=== PATIENT | female | born 1995 | race American Indian/Alaskan Native ===

== ENCOUNTER 2018-11-30 04:58 | Emergency (ER) | payer OTHER ==
[~2018-11-30 04:58] MED LIST: BACTRIM DS TAB1 EACH PO; KEFLEX500 MG PO; SULFAMETHOXAZO1 EAC1 PO; TYLENOL WITH C1 EACH PO
[2018-11-30] MEDS ORDERED: NORCO 5-325 TA1 EACH PO (07:08)
== END 2018-11-30 08:25 | disposition home or self-care (01) ==
LOC: ED 04:58
PROC: 0HQ0XZZ Repair Scalp Skin, External Approach (ICD-10-PCS; principal; 2018-11-30)
PROC: 0HQMXZZ Repair Right Foot Skin, External Approach (ICD-10-PCS; 2018-11-30)
PROC: 0HQLXZZ Repair Left Lower Leg Skin, External Approach (ICD-10-PCS; 2018-11-30)
DX: S01.01XA Laceration without foreign body of scalp, initial encounter (principal); S81.012A Laceration without foreign body, left knee, initial encounter; S91.011A Laceration without foreign body, right ankle, initial encounter; V87.8XXA Person injured in other specified noncollision transport accidents involving motor vehicle (traffic), initial encounter; Z79.899 Other long term (current) drug therapy
CPT/HCPCS: 12004; 70450; 71045; 71260; 72125; 74177; 80053; 81001; 82150; 82550; 83690; 85025; 86850; 86900; 86901; 96374; 96375; 99284-25; G0480; J0690; J2405; J3010; Q9967

== ENCOUNTER 2023-10-23 05:15 | Emergency (ER) | payer OTHER ==
[~2023-10-23] VITALS: Ht 167.6 cm; Wt 56.7 kg
[~2023-10-23 05:15] MED LIST changes: +NORCO 5-325 TA1 EACH PO
[2023-10-23 05:47] LABS: BASOPHILS 0.9 % (0-2); EOSINOPHILS 1.5 % (0-6); HEMATOCRIT 41.6 % (35.0-50.0); HEMOGLOBIN 13.8 g/dL (12.0-18.0); LYMPHOCYTES 38.9 % (24-44); MCH 27.5 (27-36); MCHC 33.1 g/dl (30-36); MCV 83.1 fl (81-99); MONOCYTES 6.9 % (0-12); NEUTROPHILS 51.8 % (39-80); PLATELET COUNT 335 K/uL (140-440); RBC 5.01 M/ul (4.3-5.7); RDW 15.3 (10.5-15.0)
[2023-10-23 06:05] LABS: ACETAMINOPHEN 0 ug/mL (10-30); ALBUMIN 4.2 g/dL (3.4-5.0); ALBUMIN/GLOBULIN RATIO 1.31 (1.1-2.4); ALCOHOL, MEDICAL <3 ng/dL (<3); ALKALINE PHOSPHATASE 53 U/L (46-116); ALT (SGPT) 16 U/L (14-59); ANION GAP 15.3 (7-21); AST (SGOT) 15 U/L (15-37); BUN/CREATININE RATIO 9.63 (6.0-28.6); CARBON DIOXIDE 22 mmol/L (21-32); CHLORIDE 103 mmol/L (98-107); CREATININE, SERUM 0.83 mg/dL (0.55-1.02); GLOMERULAR FILTRATION RATE,EST 99 mL/min (>60); POTASSIUM 3.3 mmol/L (3.5-5.1); PROTEIN, TOTAL 7.4 g/dL (6.4-8.2); UREA NITROGEN 8 mg/dL (7-18)
[2023-10-23 06:06] LABS: SALICYLATE <0.2 mg/dL (2.8-20.0)
[2023-10-23 06:11] LABS: BILIRUBIN, URINE NEGATIVE (negative); BLOOD/HGB, URINE NEGATIVE (Negative); KETONE, URINE SMALL (Negative); LEUK ESTERASE, URINE NEGATIVE (negative); NITRITE, URINE NEGATIVE (negative)
[2023-10-23 07:05] VITALS: BP 128/88
[2023-10-23 07:29] LABS: AMPHETAMINES, URINE POSITIVE (NEGATIVE); BARBITURATES, URINE NEGATIVE (NEGATIVE); BENZODIAZEPINE, URINE NEGATIVE (NEGATIVE); BUPRENORPHINE, URINE NEGATIVE (NEGATIVE); CANNABINOID, URINE NEGATIVE (NEGATIVE); COCAINE, URINE NEGATIVE (NEGATIVE); ECSTASY, URINE NEGATIVE (NEGATIVE); FENTANYL, URINE NEGATIVE (NEGATIVE); METHADONE, URINE NEGATIVE (NEGATIVE); OPIATES, URINE NEGATIVE (NEGATIVE); OXYCODONE, URINE NEGATIVE (NEGATIVE); PHENCYCLIDINE, URINE NEGATIVE (NEGATIVE)
== END 2023-10-23 07:05 | disposition home or self-care (01) ==
LOC: ED 05:15
PROVIDERS: Internal Medicine
DX: F15.90 Other stimulant use, unspecified, uncomplicated (principal); E86.0 Dehydration; R00.0 Tachycardia, unspecified
CPT/HCPCS: 36415; 80053; 80307; 81003; 84703; 85025; 96374; 99283-25; G0480; J2060; J7121